=== PATIENT | male | born 1985 | race Caucasian/White ===

== ENCOUNTER 2022-12-30 16:46 | Emergency (ER) | payer MEDICAID ==
[~2022-12-30] VITALS: Ht 177.8 cm; Wt 116.0 kg
[2022-12-30 16:54] VITALS: BP 156/102; PULSE 110; TEMP 98.2; O2SAT 99
[2022-12-30 17:09] LABS: BASOPHILS % (AUTO) 0.5 % (0-1); EOSINOPHILS # (AUTO) 0.1 X10'3 (0-0.9); EOSINOPHILS % (AUTO) 1.1 % (0-6); HEMATOCRIT 42.6 % (42.0-52.0); HEMOGLOBIN 14.9 g/dl (14.0-17.9); LYMPHOCYTES # (AUTO) 2.4 X10'3 (1.1-4.8); LYMPHOCYTES % (AUTO) 32.4 % (21-51); MEAN CORPUSCULAR HEMOGLOBIN 31.5 PG (27.0-31.0); MEAN PLATELET VOLUME 6.9 FL (7.4-10.4); MONOCYTES # (AUTO) 0.5 X10'3 (0-0.9); MONOCYTES % (AUTO) 7.1 % (2-12); NEUTROPHILS # (AUTO) 4.4 X10'3 (1.8-7.7); NEUTROPHILS % (AUTO) 58.9 % (42-75); PLATELET COUNT 237 X10'3 (140-440); RED BLOOD COUNT 4.74 X10'6 (4.70-6.10); RED CELL DISTRIBUTION WIDTH 13.1 % (11.5-14.5); WHITE BLOOD COUNT 7.5 X10'3 (4.5-11.0)
[2022-12-30 17:24] LABS: ALANINE AMINOTRANSFERASE 22 U/L (12-78); ALBUMIN/GLOBULIN RATIO 1.3 (1.1-1.5); ALKALINE PHOSPHATASE 62 IU/L (46-116); ANION GAP 11 (8-16); ASPARTATE AMINO TRANSFERASE 14 U/L (10-37); BILIRUBIN,TOTAL 0.6 MG/DL (0.1-1.0); BLOOD UREA NITROGEN 15 MG/DL (7-18); BUN/CREATININE RATIO 13.3 (10.0-20.0); CALCIUM 8.7 MG/DL (8.5-10.1); CHLORIDE 104 MMOL/L (99-107); CREATININE 1.13 MG/DL (0.60-1.10); GLUCOSE 131 MG/DL (70-104); POTASSIUM 3.5 MMOL/L (3.5-5.1); SODIUM 140 MMOL/L (135-145); TOTAL PROTEIN 7.1 G/DL (6.4-8.2); eCRCL 91 ML/MIN; eGFR 72 ML/MIN
[2022-12-30 17:33] LABS: PRO BRAIN NATRIURETIC PEPTIDE 30 PG/ML (0-125)
[2022-12-30] MEDS ORDERED: LORA-269 PO ×2 (23:49→23:52)
[2022-12-31 00:02] VITALS: RESP 18
== END 2022-12-31 00:48 | disposition home or self-care (01) ==
LOC: ER 16:47
DX: F41.1 Generalized anxiety disorder (principal); R06.02 Shortness of breath; Z79.899 Other long term (current) drug therapy
CPT/HCPCS: 36415; 71045; 80053; 83880; 84484; 85025; 93005; 99285

== ENCOUNTER 2023-01-19 12:25 | Emergency (ER) | payer MEDICAID ==
[~2023-01-19] VITALS: Ht 180.3 cm; Wt 115.9 kg
[~2023-01-19 12:25] MED LIST: LORA-269 PO
[2023-01-19 12:53] VITALS: BP 140/96; PULSE 102; RESP 14; TEMP 97.7; O2SAT 98
--- NOTE | 2023-01-19 14:10 | NUR ---
PT PRESENTS TO THE ER FOR COMPLAINTS OF FEELING FLUSHED AND SWEATING 15 MIN AFTER EATING, PT STATES HE TOOK HIS TEMPERATURE AND IT WAS 98.1 WHICH IS " HIGH FOR HIM". PT SAYS HE GOOGLED SYMPTOMS AND STARTED TO SPIRAL. PT STATES HE WAS RECENTLY ADMITTED TO HOSPITAL FOR NON-SPECIFIC TACHYCARDIA. PT STATES HE ALSO HAS BEEN TOLD HE IS PRE-DIABETIC.
[2023-01-19] MEDS ORDERED: PROP10TA10 PO (14:40)
== END 2023-01-19 14:47 | disposition home or self-care (01) ==
LOC: ER 12:26
DX: E11.65 Type 2 diabetes mellitus with hyperglycemia (principal); F41.9 Anxiety disorder, unspecified; Z79.899 Other long term (current) drug therapy
CPT/HCPCS: 82948; 99283